=== PATIENT | male | born 1965 | race Hispanic/Latino ===

== ENCOUNTER 2018-01-22 08:05 | Emergency (ER) | payer OTHER ==
[2018-01-22 08:06] VITALS: BMI 23.3
[2018-01-22 08:26] VITALS: BP 116/62; PULSE 78; RESP 19; TEMP 98.1; O2SAT 100
--- NOTE | 2018-01-22 09:44 | ED PDOC ---
Lower Extremity Pain/Injury Time Seen by Provider: 01/22/18 08:24 Chief Complaint (Nursing): Lower Extremity Problem/Injury Chief Complaint (Provider): Lower Extremity Problem/Injury History Per: Patient History/Exam Limitations: no limitations Onset/Duration Of Symptoms: Days (7) Additional Complaint(s): 52 years old male presents to ER for evaluation of right knee and ankle pain s/p fall last week while on vacation in [facility]. Patient states since he brought his father to ER, he decided to get checked out. He is able to ambulate and denies any weakness or numbness to extremities or taking any medications. PMD: non provided Past Medical History Reviewed: Historical Data, Nursing Documentation, Vital Signs Vital Signs: Last Vital Signs Temp 98.1 F 01/22/18 08:24 Pulse 78 01/22/18 08:24 Resp 19 01/22/18 08:24 BP 116/62 01/22/18 08:24 Pulse Ox 100 01/22/18 08:24 - Medical History PMH: No Chronic Diseases - Surgical History Surgical History: No Surg Hx - Family History Family History: States: Unknown Family Hx - Social History Current smoker - smoking cessation education provided: Yes Alcohol: None Drugs: Denies - Home Medications Home Medications: Ambulatory Orders Medication Instructions Recorded Ibuprofen [Motrin] 600 mg PO Q8 #20 tab 09/07/14 Famotidine [Pepcid] 20 mg PO Q12 #20 tab 07/26/15 Simethicone [Mylicon Chew Tab] 80 mg PO Q6 #20 07/26/15 - Allergies Allergies/Adverse Reactions: Allergies Allergy/AdvReac Type Severity Reaction Status Date / Time No Known Allergies Allergy Verified 09/07/14 04:25 Review of Systems ROS Statement: Except As Marked, All Systems Reviewed And Found Negative Musculoskeletal: Positive for: Leg Pain (Right knee), Foot Pain (Right ankle) Neurological: Negative for: Weakness, Numbness Physical Exam - Reviewed Nursing Documentation Reviewed: Yes Vital Signs Reviewed: Yes - Physical Exam Appears: Positive for: Non-toxic, No Acute Distress Head Exam: Positive for: ATRAUMATIC, NORMOCEPHALIC Skin: Positive for: Normal Color, Warm, Dry Extremity: Positive for: Normal ROM, Tenderness (mild to right patella and lateral right ankle). Negative for: Deformity, Swelling Neurologic/Psych: Positive for: Alert, Oriented (x3) - ECG O2 Sat by Pulse Oximetry: 100 (RA) Pulse Ox Interpretation: Normal - Radiology X-Ray: Read By Radiologist X-Ray Interpretation: Other (neg fracture or dislocation ankle/knee) Medical Decision Making Medical Decision Making: Time: 904 Initial Plan: --Ankle X-Ray --Ibuprofen 600 mg PO Scribe Attestation: Documented by Melissa Yuen, acting as a scribe for Td Zamudio MD. Provider Scribe Attestation: All medical record entries made by the Scribe were at my direction and personally dictated by me. I have reviewed the chart and agree that the record accurately reflects my personal performance of the history, physical exam, medical decision making, and the department course for this patient. I have also personally directed, reviewed, and agree with the discharge instructions and disposition. Disposition - Clinical Impression Clinical Impression: Knee contusion, Ankle sprain - Patient ED Disposition Is Patient to be Admitted: No Counseled Patient/Family Regarding: Studies Performed, Diagnosis, Need For Followup, Rx Given - Disposition Disposition: Routine/Home Disposition Time: 11:00 Condition: STABLE Instructions: Ankle Sprain (DC) Forms: [employer] (Uzbek)
--- NOTE | 2018-01-22 14:06 | RAD ---
Date of service: 01/22/2018 PROCEDURE: Right Ankle Radiographs. HISTORY: Right knee/ankle pain COMPARISON: Right ankle radiographs dated 08/26/2012 FINDINGS: BONES: No acute fracture. JOINTS: Ankle mortise maintained. Talar dome intact SOFT TISSUES: Small ankle joint effusion. OTHER FINDINGS: None. IMPRESSION: Small ankle joint effusion without demonstrated fracture or dislocation.
--- NOTE | 2018-01-23 09:25 | RAD ---
Date of service: 01/22/2018 PROCEDURE: Right Knee Radiographs. HISTORY: Right knee pain COMPARISON: None. FINDINGS: BONES: No acute fracture. JOINTS: Unremarkable. JOINT EFFUSION: None. OTHER FINDINGS: None. IMPRESSION: No demonstrated fracture or dislocation.
== END 2018-01-22 12:48 | disposition home or self-care (01) ==
LOC: H.ER 08:05
DX: S80.01XA Contusion of right knee, initial encounter (principal); S93.401A Sprain of unspecified ligament of right ankle, initial encounter; W19.XXXA Unspecified fall, initial encounter; F17.200 Nicotine dependence, unspecified, uncomplicated

== ENCOUNTER 2018-02-07 08:14 | Emergency (ER) | payer BC, OTHER ==
[2018-02-07 08:20] VITALS: BMI 21.6
[2018-02-07] MEDS ORDERED: Oxycodone/Acetaminophen 5/325 mg Tab PO STA (11:37)
--- NOTE | 2018-02-07 11:37 | ED PDOC ---
Upper Extremity Pain/Injury Time Seen by Provider: 02/07/18 09:35 Chief Complaint (Nursing): Finger,Hand,&Wrist Chief Complaint (Provider): Paronychia History Per: Patient Additional Complaint(s): Pt reports left thumb pain with swelling and redness since yesterday. Denies trauma to area. Past Medical History Reviewed: Nursing Documentation, Vital Signs Vital Signs: Last Vital Signs Temp 98.4 F 02/07/18 08:20 Pulse 79 02/07/18 08:20 Resp 18 02/07/18 08:20 BP 121/79 02/07/18 08:20 Pulse Ox 96 02/07/18 08:20 - Medical History PMH: No Chronic Diseases - Surgical History Surgical History: No Surg Hx - Family History Family History: States: Unknown Family Hx - Living Arrangements Living Arrangements: With Family - Social History Current smoker - smoking cessation education provided: No Alcohol: Social - Home Medications Home Medications: Ambulatory Orders Medication Instructions Recorded Ibuprofen [Motrin] 600 mg PO Q8 #20 tab 09/07/14 Famotidine [Pepcid] 20 mg PO Q12 #20 tab 07/26/15 Simethicone [Mylicon Chew Tab] 80 mg PO Q6 #20 07/26/15 Cephalexin [cephalexin] 500 mg PO BID #14 cap 02/07/18 Ibuprofen [Motrin] 600 mg PO Q6 #20 tab 02/07/18 Sulfamethoxazole/Trimethoprim 1 tab PO BID 5 Days tab 02/07/18 [Bactrim DS 800 mg-160 mg] - Allergies Allergies/Adverse Reactions: Allergies Allergy/AdvReac Type Severity Reaction Status Date / Time No Known Allergies Allergy Verified 09/07/14 04:25 Review of Systems ROS Statement: Except As Marked, All Systems Reviewed And Found Negative Skin: Positive for: Other (redness and swelling) Physical Exam - Reviewed Nursing Documentation Reviewed: Yes Vital Signs Reviewed: Yes - Physical Exam Appears: Positive for: Well, Non-toxic, No Acute Distress Head Exam: Positive for: ATRAUMATIC, NORMAL INSPECTION, NORMOCEPHALIC Skin: Positive for: Normal Color, Warm, DRY Eye Exam: Positive for: EOMI, Normal appearance, PERRL ENT: Positive for: Normal ENT Inspection Neck: Positive for: Normal, Painless ROM Cardiovascular/Chest: Positive for: Regular Rate, Rhythm Respiratory: Positive for: CNT, Normal Breath Sounds Gastrointestinal/Abdominal: Positive for: Normal Exam, Soft Back: Positive for: Normal Inspection Extremity: Positive for: Normal ROM Neurologic/Psych: Positive for: Alert, Oriented Comments: Right thumb: (+) erythema and edema noted surrounding cuticle. consistent with paronychia - ECG O2 Sat by Pulse Oximetry: 96 Medical Decision Making Medical Decision Making: I&D preformed by wroter. see notes. wound care discussed Disposition - Clinical Impression Clinical Impression: Paronychia - Disposition Disposition: Routine/Home Disposition Time: 11:40 Condition: STABLE Prescriptions: Cephalexin [cephalexin] 500 mg PO BID #14 cap Ibuprofen [Motrin] 600 mg PO Q6 #20 tab Sulfamethoxazole/Trimethoprim [Bactrim DS 800 mg-160 mg] 1 tab PO BID 5 Days tab Instructions: Paronychia (DC) Forms: [facility] ED School/Work Excuse - Incision & Drainage Of Abscess Procedure: Incised W/Scalpel Blade#: (11), Drained Pus
[2018-02-07] MEDS ORDERED: Tmp-Smz 800 mg-160 mg DS Tab PO STA (11:38)
[2018-02-07] MEDS ORDERED: Tmp-Smz 800 mg-160 mg DS Tab ONE (11:52)
[2018-02-07] MEDS ORDERED: Oxycodone/Acetaminophen 5/325 mg Tab ONE (11:53)
[2018-02-07 12:02] VITALS: BP 132/83; PULSE 84; RESP 16; TEMP 98.3
[2018-02-20 21:26] VITALS: O2SAT 96
== END 2018-02-07 12:00 | disposition home or self-care (01) ==
LOC: H.ER 08:14
DX: L03.011 Cellulitis of right finger (principal)

== ENCOUNTER 2018-04-21 11:03 | Emergency (ER) | payer BC ==
[2018-04-21 11:07] VITALS: BMI 22.3
[2018-04-21 11:09] VITALS: RESP 20
[2018-04-21] MEDS: Sodium Chloride 0.9% 1,000 ML IV SCH ×2 (11:49→13:57)
[2018-04-21 11:53] LABS: BASO # 0.1 K/uL (0.0-0.2); EOS # 0.3 K/uL (0.0-0.7); EOS % 3.8 % (0.0-4.0); HEMOGLOBIN 14.2 g/dL (12.0-18.0); LYMPH # 2.2 K/uL (1.0-4.3); LYMPH % 29.4 % (20.0-40.0); MEAN CELL VOLUME 94.7 fl (80.0-94.0); MEAN CORPUSCULAR HEMOGLOBIN 31.7 pg (27.0-31.0); MEAN CORPUSCULAR HGB CONC 33.5 g/dL (33.0-37.0); MEAN PLATELET VOLUME 6.8 fl (7.2-11.7); MONO # 0.4 K/uL (0.0-0.8); MONO % 4.8 % (0.0-10.0); NEUT # 4.5 K/uL (1.8-7.0); NRBC % 0.1 % (0.0-0.0); RBC 4.49 Mil/uL (4.40-5.90); RED CELL DISTRIBUTION WIDTH 13.1 % (11.5-14.5); WHITE BLOOD COUNT 7.5 K/uL (4.8-10.8)
[2018-04-21 12:28] LABS: ALB/GLOB RATIO 1.3 (1.0-2.1); ALBUMIN 3.9 g/dL (3.5-5.0); ALT/SGPT 28 U/L (21-72); AST/SGOT 30 U/L (17-59); BLOOD UREA NITROGEN 17 mg/dl (9-20); CALCIUM 8.9 mg/dL (8.4-10.2); GFR NON-AFRICAN AMERICAN > 60; LIPASE 76 U/L (23-300)
[2018-04-21 13:53] LABS: SQUAMOUS EPITHIAL 1 /hpf (0-5); URINE BILIRUBIN NEGATIVE (NEGATIVE); URINE BLOOD NEGATIVE (NEGATIVE); URINE CLARITY CLEAR (Clear); URINE COLOR YELLOW (YELLOW); URINE GLUCOSE (UA) NEG (NEGATIVE); URINE LEUKOCYTE ESTERASE NEG Leu/uL (Negative); URINE PROTEIN NEGATIVE (NEGATIVE); URINE UROBILINOGEN 0.2-1.0 mg/dL (0.2-1.0)
--- NOTE | 2018-04-21 15:03 | US ---
Date of service: 04/21/2018 HISTORY: r/o Choley COMPARISON: None. TECHNIQUE: Sonographic evaluation of the abdomen. FINDINGS: LIVER: Measures 16.6 cm. Patent portal vein. Portal venous flow: Hepatopetal. Unremarkable echogenicity of the liver parenchyma. No mass. No intrahepatic bile duct dilatation. GALLBLADDER: Unremarkable. No gallstones. COMMON BILE DUCT: Measures 4.5 mm. No stones. No dilatation. PANCREAS: Unremarkable as visualized. No mass. No ductal dilatation. RIGHT KIDNEY: Measures 4 x 10.9cm. Normal echogenicity. No calculus, mass, or hydronephrosis. LEFT KIDNEY: Measures 0.2 x 11.9cm. Normal echogenicity. No calculus, mass, or hydronephrosis. SPLEEN: Normal in size and contour. No mass. AORTA: No aneurysmal dilatation. IVC: Unremarkable. OTHER FINDINGS: None. IMPRESSION: Unremarkable abdominal sonogram.
--- NOTE | 2018-04-21 15:49 | ED PDOC ---
HPI: Abdomen Time Seen by Provider: 04/21/18 11:33 Chief Complaint (Nursing): GI Problem Chief Complaint (Provider): Abd Pain History Per: Patient History/Exam Limitations: no limitations Onset/Duration Of Symptoms: Hrs (seven) Outside of [place] travel?: No Current Symptoms Are (Timing): Still Present Severity: Mild Quality Of Discomfort: Unable To Describe Associated Symptoms: Nausea, Other (belching). denies: Diarrhea Last Bowel Movement: Today Additional Complaint(s): Pt presents to the ED complaining of several hours of belching without nausea vomiting or diarrhea; pt complains of mild abdominal pain; pt denies any chronic illnesses or other symptoms Past Medical History Reviewed: Historical Data, Nursing Documentation, Vital Signs Vital Signs: Last Vital Signs Temp 97.8 F 04/21/18 11:08 Pulse 54 L 04/21/18 11:08 Resp 20 04/21/18 11:08 BP 131/72 04/21/18 11:08 Pulse Ox 97 04/21/18 11:08 - Family History Family History: States: Unknown Family Hx - Home Medications Home Medications: Ambulatory Orders Medication Instructions Recorded Ibuprofen [Motrin] 600 mg PO Q8 #20 tab 09/07/14 Famotidine [Pepcid] 20 mg PO Q12 #20 tab 07/26/15 Simethicone [Mylicon Chew Tab] 80 mg PO Q6 #20 07/26/15 Cephalexin [cephalexin] 500 mg PO BID #14 cap 02/07/18 Ibuprofen [Motrin] 600 mg PO Q6 #20 tab 02/07/18 Sulfamethoxazole/Trimethoprim 1 tab PO BID 5 Days tab 02/07/18 [Bactrim DS 800 mg-160 mg] Omeprazole 20 mg PO DAILY #30 tab. 04/21/18 - Allergies Allergies/Adverse Reactions: Allergies Allergy/AdvReac Type Severity Reaction Status Date / Time No Known Allergies Allergy Verified 04/21/18 11:28 Review of Systems ROS Statement: Except As Marked, All Systems Reviewed And Found Negative Gastrointestinal: Positive for: Nausea, Other (belching and gas) Physical Exam - Reviewed Nursing Documentation Reviewed: Yes Vital Signs Reviewed: Yes - Physical Exam Appears: Positive for: Well, Non-toxic, No Acute Distress, Uncomfortable Head Exam: Positive for: ATRAUMATIC, NORMAL INSPECTION Skin: Positive for: Normal Color Eye Exam: Positive for: Normal appearance, EOMI, PERRL. Negative for: Nystagmus, Periorbital swelling, Periorbital tenderness Neck: Positive for: Normal, Painless ROM, Supple. Negative for: Decreased ROM Cardiovascular/Chest: Positive for: Regular Rate, Rhythm Respiratory: Positive for: Normal Breath Sounds Pulses-Carotid (L): 2+ Pulses-Carotid (R): 2+ Pulses-Radial (L): 2+ Pulses-Radial (R): 2+ Gastrointestinal/Abdominal: Positive for: Normal Exam, Bowel Sounds, Soft. Negative for: Tenderness Back: Positive for: Normal Inspection. Negative for: L CVA Tenderness, R CVA Tenderness - Laboratory Results Result Diagrams: 04/21/18 11:40 04/21/18 11:40 - ECG O2 Sat by Pulse Oximetry: 97 Medical Decision Making Medical Decision Making: US of abdomen provides no clinically significant results CBC/CMP and lipase normal Pt tx with IV reglan and protonix with good effect; belching is arrested Pt discharged with instructions to follow up with PMD within 24 hours Disposition - Clinical Impression Clinical Impression: Abdominal pain - Patient ED Disposition Is Patient to be Admitted: No Doctor Will See Patient In The: Office Counseled Patient/Family Regarding: Studies Performed, Diagnosis, Need For Followup - Disposition Disposition: Routine/Home Disposition Time: 15:52 Condition: STABLE Additional Instructions: follow up with PMD in 24-48 hours Prescriptions: Omeprazole 20 mg PO DAILY #30 tab Instructions: Stomach Ache and Stomach Upset
[2018-04-21 16:01] VITALS: BP 110/70; PULSE 78; TEMP 98.5; O2SAT 98
== END 2018-04-21 16:01 | disposition home or self-care (01) ==
LOC: H.ER 11:03
DX: R10.9 Unspecified abdominal pain (principal)
CPT/HCPCS: 76700; 80053; 81003; 83690; 85025; 96361; 96374; 96375; 99284; C9113; J2765; J7030